=== PATIENT | female | born 1945 | race Caucasian/White ===

== ENCOUNTER 2018-05-04 02:20 | Emergency (ER) | payer OTHER ==
[2018-05-04] MEDS: morphine 4 MG/ML VIAL IV (03:05)
[2018-05-04] MEDS: ONDANSETRON 4 MG INJ IV (03:05)
== END 2018-05-04 04:30 | disposition home or self-care (01) ==
LOC: E/R 02:20
DX: G89.18 Other acute postprocedural pain (principal); R40.2142 Coma scale, eyes open, spontaneous, at arrival to emergency department; R40.2362 Coma scale, best motor response, obeys commands, at arrival to emergency department; R40.2252 Coma scale, best verbal response, oriented, at arrival to emergency department
CPT/HCPCS: 96374; 96375; 99284-25